=== PATIENT | male | born 1965 ===

== ENCOUNTER 2018-05-11 10:56 | Inpatient (IN) ==
[2018-05-11 14:58] LABS: Basophils % 0.3 % (0.0-0.8); Eosinophils # 0.4 10*3/uL (0.0-0.87); Hematocrit 35.5 VOL% (42.0-52.0); Hemoglobin 12.5 GM/DL (14.0-18.0); Immature Granulocytes % 0.9 %; Immature Granulocytes Absolute 0.03 #; Lymphocytes # 0.6 10*3/uL (1.4-4.0); Lymphocytes % 17.6 % (21.2-54.2); Mean Corpuscular HGB Conc 35.2 GM/DL (32-36); Mean Corpuscular Hemoglobin 30 PG (27-34); Mean Corpuscular Volume 83.7 FL (87-102); Mean Platelet Volume 10.5 FL (9.6-12.0); Monocytes # 0.1 10*3/uL (0.11-0.8); Monocytes % 3.3 % (1.7-12.7); Neutrophils # 2.2 10*3/uL (1.4-7.4); Neutrophils % 66.9 % (38.7-73.9); Platelet Count 102 T/CUMM (130-400); Red Blood Count 4.24 MC/CUMM (3.8-5.5); White Blood Count 3.4 T/CUMM (4-12)
[2018-05-11 15:26] LABS: Alanine Aminotransferase 74 U/L (16-61); Alkaline Phosphatase 137 U/L (45-117); Aspartate Amino Transferase 66 U/L (0-37); Bilirubin,Total < 0.39 MG/DL (0.2-1.0); Blood Urea Nitrogen 29 MG/DL (7-18); Calcium 7.7 MG/DL (8.5-10.1); Glucose 331 MG/DL (74-106); Osmolality,Calculated 275.1 MOS/KG (273-304); Potassium 4.7 MMOL/L (3.5-5.1); Sodium 128 MMOL/L (136-145)
[2018-05-11 15:29] LABS: Band Neutrophils 9 % (0-10); Eosinophils 10 % (0-10); Lymphocytes 17 % (20-55); Platelet Estimate Adequate; Segmented Neutrophils 59 % (50-85); Total Cells Counted 100
[2018-05-11] MEDS ORDERED: ONDANSETRON 4 MG/2 ML VIAL IV PRN (15:42)
[2018-05-11] MEDS ORDERED: NICOTINE 21 MG/24 HR PATCH TRANSDERM PRN (15:42)
[2018-05-11] MEDS ORDERED: GLUCAGON 1 MG VIAL IM PRN (15:49)
[2018-05-11] MEDS ORDERED: DEXTROSE 50% 25 GM/50 ML VIAL IV PRN (15:49)
[2018-05-11] MEDS: SODIUM CHLORIDE 0.9% 1,000 ML IV SCH (16:35)
[2018-05-11] MEDS: INSULIN LISPRO 100 UNIT/ML SUBCUT SCH ×2 (16:37→21:41)
[2018-05-11 16:39] LABS: Troponin I 0.042 NG/ML (0.00-0.045)
[2018-05-11 18:02] LABS: Apearance,Urine CLEAR (Clear); Bacteria,Urine Occasional /HPF (Few); Bilirubin,Urine Negative (Negative); Blood, Urine Small mg/dL (Negative); Glucose,Urine (UA) >=500 mg/dL (Negative); Ketones,Urine Negative (Negative); Nitrite,Urine Negative (Negative); Protein,Urine Negative; RBC,Urine <1 /HPF (0-4); Squamous Epithelial Cell,Urine Occasional /HPF (0-10); Urine Color Straw (Yellow); Urine Specific Gravity 1.006 (1.001-1.035); Urine Urobilinogen < 2.0 EU/DL (0.2-1.0); WBC,Urine 1 /HPF (0-6)
[2018-05-11] MEDS: SIMVASTATIN 20 MG TABLET PO SCH (21:41)
[2018-05-12] MEDS: SODIUM CHLORIDE 0.9% 1,000 ML IV SCH ×2 (00:50→08:09)
[2018-05-12 06:29] LABS: Basophils % 0.3 % (0.0-0.8); Eosinophils # 0.4 10*3/uL (0.0-0.87); Immature Granulocytes % 1.1 %; Immature Granulocytes Absolute 0.04 #; Lymphocytes # 0.7 10*3/uL (1.4-4.0); Mean Corpuscular HGB Conc 35.1 GM/DL (32-36); Mean Corpuscular Hemoglobin 29 PG (27-34); Mean Corpuscular Volume 83.5 FL (87-102); Mean Platelet Volume 11.1 FL (9.6-12.0); Monocytes # 0.2 10*3/uL (0.11-0.8); Monocytes % 4.5 % (1.7-12.7); Neutrophils # 2.2 10*3/uL (1.4-7.4); Neutrophils % 63.1 % (38.7-73.9); Platelet Count 104 T/CUMM (130-400); Red Blood Count 4.43 MC/CUMM (3.8-5.5); White Blood Count 3.6 T/CUMM (4-12)
[2018-05-12 06:57] LABS: Albumin 3.2 G/DL (3.4-5.0); Bilirubin,Total 0.4 MG/DL (0.2-1.0); Calcium 8.2 MG/DL (8.5-10.1); Osmolality,Calculated 279.4 MOS/KG (273-304); Total Protein 6.3 G/DL (6.4-8.3)
[2018-05-12 06:58] LABS: Albumin 3.2 G/DL (3.4-5.0); Bilirubin,Direct 0.13 MG/DL (0.0-0.20); Bilirubin,Indirect 0.4 MG/DL (0.0-1.0); Bilirubin,Total 0.5 MG/DL (0.2-1.0); Total Protein 6.3 G/DL (6.4-8.3)
[2018-05-12] MEDS: PANTOPRAZOLE 40 MG TABLET PO SCH (08:07)
[2018-05-12] MEDS: ASPIRIN EC 81 MG TABLET PO SCH (08:07)
[2018-05-12] MEDS: INSULIN LISPRO 100 UNIT/ML SUBCUT SCH ×4 (08:08→22:48)
[2018-05-12 08:44] LABS: Troponin I 0.034 NG/ML (0.00-0.045)
[2018-05-12 12:32] LABS: Band Neutrophils 23 % (0-10); Eosinophils 10 % (0-10); Lymphocytes 13 % (20-55); Segmented Neutrophils 47 % (50-85); Total Cells Counted 100
[2018-05-12 12:33] LABS: Burr Cells 1+; Platelet Estimate Adequate; Poikilocytosis 1+; Polychromasia Slight
[2018-05-12] MEDS: SIMVASTATIN 20 MG TABLET PO SCH (22:49)
[2018-05-13] MEDS: SODIUM CHLORIDE 0.9% 1,000 ML IV SCH ×2 (00:50→07:43)
[2018-05-13 06:30] LABS: Basophils % 0.8 % (0.0-0.8); Eosinophils # 0.4 10*3/uL (0.0-0.87); Eosinophils % 11.9 % (0.00-10.9); Hematocrit 35.5 VOL% (42.0-52.0); Immature Granulocytes % 0.8 %; Immature Granulocytes Absolute 0.03 #; Lymphocytes # 1.5 10*3/uL (1.4-4.0); Lymphocytes % 40.6 % (21.2-54.2); Mean Corpuscular HGB Conc 37.2 GM/DL (32-36); Mean Corpuscular Hemoglobin 30 PG (27-34); Mean Corpuscular Volume 81.1 FL (87-102); Mean Platelet Volume 11.8 FL (9.6-12.0); Monocytes # 0.3 10*3/uL (0.11-0.8); Monocytes % 8.6 % (1.7-12.7); Neutrophils # 1.4 10*3/uL (1.4-7.4); Neutrophils % 37.3 % (38.7-73.9); Platelet Count 143 T/CUMM (130-400); Red Blood Count 4.38 MC/CUMM (3.8-5.5); Red Cell Distribution Width 13.2 % (9.3-17.3); White Blood Count 3.6 T/CUMM (4-12)
[2018-05-13 06:43] LABS: Hemoglobin 12.8 GM/DL (14.0-18.0)
[2018-05-13 06:59] LABS: Band Neutrophils 1 % (0-10); Eosinophils 11 % (0-10); Lymphocytes 37 % (20-55); Metamyelocytes 1 %; Segmented Neutrophils 45 % (50-85); Total Cells Counted 100
[2018-05-13 07:00] LABS: Acanthocytes Few; Bilirubin,Total 0.5 MG/DL (0.2-1.0); Calcium 7.8 MG/DL (8.5-10.1); Microcytosis 1+; Osmolality,Calculated 283.7 MOS/KG (273-304); Ovalocytes Slight
[2018-05-13 07:01] LABS: Atypical Lymphocytes Few; Burr Cells Slight; Platelet Estimate Adequate
[2018-05-13] MEDS: ASPIRIN EC 81 MG TABLET PO SCH (09:10)
[2018-05-13] MEDS: PANTOPRAZOLE 40 MG TABLET PO SCH (09:10)
[2018-05-13] MEDS: INSULIN LISPRO 100 UNIT/ML SUBCUT SCH (10:41)
[2018-05-13 12:10] VITALS: BP 108/69
== END 2018-05-13 13:10 | disposition home or self-care (01) | DRG 683 ==
LOC: N.5E 13:50 → SUATTDRO 13:50
PROVIDERS: ADMIT Internal Medicine